=== PATIENT | male | born 1955 | race Caucasian/White ===

== ENCOUNTER → 2025-02-28 09:20 | Outpatient (CLI) | payer OTHER, SELFPAY ==
--- NOTE | 2025-02-28 09:23 | DI.RAD.S_ITS ---
PROCEDURE: XR CERVICAL SPINE 4V OR 5V INDICATIONS: NECK PAIN TECHNIQUE: 5 views of the cervical spine acquired. COMPARISON: None. FINDINGS: Bones: No fractures or dislocations to the T1 level. Oblique images demonstrate no significant bony foraminal stenoses. Mild to moderate, multilevel degenerative disc disease and diffuse facet arthrosis. Soft tissues: No prevertebral soft tissue swelling. IMPRESSION: Mild to moderate, multilevel degenerative disc disease and diffuse facet arthrosis. Dictated by: Jf Carey M.D. on 02/28/2025 at 11:03 Approved by: Jf Carey M.D. on 02/28/2025 at 11:06
== END ==
PROVIDERS: Referring Provider Physical Medicine & Rehabilitation; Visit Provider Physical Medicine & Rehabilitation
DX: M47.812 Spondylosis without myelopathy or radiculopathy, cervical region (principal); M50.30 Other cervical disc degeneration, unspecified cervical region
CPT/HCPCS: 72050

== ENCOUNTER → 2025-03-05 15:48 | Outpatient (CLI) | payer OTHER, SELFPAY ==
--- NOTE | 2025-03-05 15:50 | DI.MRI.S_ITS ---
PROCEDURE: MR CERVICAL SPINE WO CON INDICATIONS: C6/7 TL ZEFERINO TECHNIQUE: Noncontrast sagittal T1 spin echo and T2 fast spin echo, sagittal STIR, foraminal oblique sagittal T2 fast spin echo, and axial gradient echo or T2 fast spin echo through the cervical spine. COMPARISON: [facility], CR, XR CERVICAL SPINE 4V OR 5V, 02/28/2025, 9:20. FINDINGS: Image quality: Diagnostic Alignment and Curvature: There is normal bony alignment. No sagittal listhesis. Bone Marrow: Marrow demonstrates normal overall signal. Spinal Cord: Visualized spinal cord has normal size and signal. No cerebellar tonsillar herniation. Paraspinous Soft Tissues: No paravertebral masses. Prevertebral soft tissues are normal in thickness. C2-C3: Mildly desiccated disc. No spinal canal stenosis. Bilateral, mild neural foraminal stenosis due to facet greater than uncovertebral arthrosis. C3-C4: Mildly desiccated disc. No spinal canal stenosis. Left severe and right moderate neural foraminal stenosis due to uncovertebral and facet arthrosis. C4-C5: Mild to moderate spinal canal stenosis due to degenerated disc osteophyte complex and mild ligamentum flavum thickening. Left moderate to severe and right mild neural foraminal stenosis due to uncovertebral and facet arthrosis. C5-C6: Moderate spinal canal stenosis due to degenerated disc osteophyte complex and ligamentum flavum thickening. Left severe and right moderate to severe neural foraminal stenosis due to uncovertebral greater than facet arthrosis. C6-C7: Mild spinal canal stenosis due to degenerated disc osteophyte complex and ligamentum flavum thickening. Left severe and right moderate neural foraminal stenosis due to uncovertebral and facet arthrosis. C7-T1: Mildly desiccated disc. No spinal canal stenosis. Mild left neural foraminal stenosis due to facet arthrosis. IMPRESSION: 1. Multilevel neural foraminal stenosis reaches moderate at C5-6, [id number] at C4-5, and mild at C6-7. 2. Multilevel severe neural foraminal stenosis, on the left at C3-4, C5-6, and C6-7. Additional levels of moderate to severe neural foraminal stenosis on the left at C4-5 and on the right at C5-6. Dictated by: Brian Pagan M.D. on 03/07/2025 at 13:26 Approved by: Brian Pagan M.D. on 03/07/2025 at 13:32
== END ==
PROVIDERS: PCP Family Medicine; Referring Provider Physical Medicine & Rehabilitation; Visit Provider Physical Medicine & Rehabilitation
DX: M54.12 Radiculopathy, cervical region (principal); M48.02 Spinal stenosis, cervical region
CPT/HCPCS: 72141